=== PATIENT | female | born 1945 | race Caucasian/White ===

== ENCOUNTER 2020-12-31 13:26 | Outpatient (CLI) | payer MEDICARE | END 2020-12-31 13:27 | disposition home or self-care (01) | LOC: CSHMAMMO 13:26 | PROVIDERS: ATTEND Internal Medicine | DX: Z12.31 Encounter for screening mammogram for malignant neoplasm of breast (principal); Z80.3 Family history of malignant neoplasm of breast | CPT/HCPCS: 77063; 77067 ==

== ENCOUNTER 2021-01-05 10:10 | Outpatient (CLI) | payer MEDICARE | END 2021-01-05 10:11 | disposition home or self-care (01) | LOC: CSHULT 10:10 | PROVIDERS: ATTEND Specialist | DX: E04.1 Nontoxic single thyroid nodule (principal); E04.2 Nontoxic multinodular goiter | CPT/HCPCS: 76536 ==

== ENCOUNTER 2022-06-30 12:52 | Outpatient (CLI) | payer MEDICARE | END 2022-06-30 12:53 | disposition home or self-care (01) | LOC: CSHMAMMO 12:52 | PROVIDERS: ATTEND Family Medicine | DX: Z12.31 Encounter for screening mammogram for malignant neoplasm of breast (principal); Z80.3 Family history of malignant neoplasm of breast | CPT/HCPCS: 77063; 77067 ==

== ENCOUNTER 2022-07-11 07:57 | Outpatient (CLI) | payer MEDICARE | END 2022-07-11 07:58 | disposition home or self-care (01) | LOC: CSHCT 07:57 | PROVIDERS: ATTEND Physician Assistant Medical | DX: R10.9 Unspecified abdominal pain (principal); R19.7 Diarrhea, unspecified; K31.5 Obstruction of duodenum; R11.2 Nausea with vomiting, unspecified | CPT/HCPCS: 74177 ==

== ENCOUNTER 2024-09-09 09:26 | Outpatient (CLI) | payer MEDICARE ==
[2024-09-09] MEDS ORDERED: Iopamidol 300 61% 100 ML VIAL FS ONE (09:58)
[2024-09-09 10:57] LABS: Estimated GFR - POC 65.0
== END 2024-09-09 09:27 | disposition home or self-care (01) ==
LOC: CSHCT 09:26
PROVIDERS: ATTEND Physician Assistant Medical
DX: R10.11 Right upper quadrant pain (principal); R11.0 Nausea; K52.9 Noninfective gastroenteritis and colitis, unspecified
CPT/HCPCS: 36415; 74177; 82565; Q9967